=== PATIENT | female | born 1980 | race Caucasian/White ===

== ENCOUNTER 2016-12-15 11:41 | Inpatient (IN) | payer OTHER ==
[2016-12-15] MEDS ORDERED: ePHEDrine SULFATE IV PRN (14:37)
[2016-12-15] MEDS ORDERED: BRETHINE SUB-Q PRN (14:37)
[2016-12-15] MEDS ORDERED: POLYCILLIN/NS 2 GM/100 ML 2 GM/100 ML BAG IV ONE ×2 (14:37→14:49)
[2016-12-15] MEDS ORDERED: SUBLIMAZE IV PRN (14:37)
[2016-12-15] MEDS ORDERED: LACTATED RINGERS 1,000 ML ONE (14:49)
[2016-12-15] MEDS ORDERED: LACTATED RINGERS 1,000 ML IV SCH (14:50)
--- NOTE | 2016-12-15 14:51 | History and Physical Report ---
History of Present Illness Date of examination: 12/15/16 Date of admission: 12/15/16 11:45 Chief complaint: Contractions History of present illness: 36 year old presents to L&D triage with complaint of contractions. Patient denies leaking of fluid or vaginal bleeding. Patient reports active movement. Patient is seen at [facility] for care but we do not have any records for her. Will re-draw labs. 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 denies: congenital heart defect, mental retardation Social history: , lives with family, full code. denies: smoking, alcohol abuse, prescription drug abuse, IV drug use - Obstetrical History Expected Date of Delivery: 12/10/16 Actual Gestation: 40 Week(s) 5 Day(s) : 7 Para: 6 Hx # Term Pregnancies: 7 Number of Pregnancies: 0 Spontaneous Abortions: 0 Induced : 0 Number of Living Children: 6 Medications and Allergies Allergies Allergy/AdvReac Type Severity Reaction Status Date / Time No Known Allergies Allergy Unverified 12/15/16 11:43 Home Medications Medication Instructions Recorded Confirmed Last Taken Type Complete Caplet 1 tab PO DAILY 12/15/16 12/15/16 1 Day Ago History Active Meds: Active Medications Fentanyl (Sublimaze) 100 mcg IV Q2H PRN PRN Reason: Labor Pain Ampicillin Sodium (Polycillin/Ns 2 Gm/100 Ml) 2 gm in 100 mls @ 100 mls/hr IV ONCE ONE PRN Reason: Protocol Stop: 12/15/16 15:36 Lactated Ringer's (Lactated Ringers) 1,000 mls @ 125 mls/hr IV DIRECT ISIS Oxytocin/Sodium Chloride (Pitocin/Ns 20 Unit/1000ml Drip) 20 units in 1,000 mls @ 125 mls/hr IV DIRECT ISIS Ampicillin Sodium (Polycillin/Ns 1 Gm/50 Ml) 1 gm in 50 mls @ 100 mls/hr IV Q4H ISIS PRN Reason: Protocol Review of Systems All systems: negative (contractions) - Vital Signs Vital signs: Vital Signs Pulse Pulse Ox 93 H 95 12/15/16 12:11 12/15/16 12:11 Temp Pulse Resp BP Pulse Ox 93 H 120/78 98 12/15/16 13:37 12/15/16 12:18 12/15/16 13:37 - Physical Exam Breasts: Positive: deferred Cardiovascular: Regular rate, Normal S1, Normal S2 Lungs: Positive: Clear to auscultation Abdomen: Positive: normal appearance, soft. Negative: distention, tenderness, guarding, rigidity Genitourinary (Female): Positive: normal external genitalia. Negative: perineal /vulvar lesions (no genital lesions seen on careful exam with bright light) Uterus: Positive: enlarged. Negative: tender Extremities: Positive: normal. Negative: tenderness, edema - Obstetrical FHR: category 2 (2 variable FHR decelerations noted with rapid return to baseline; moderate variability, normal baseline rate, and accelerations of FHR noted) Uterine Contraction Monitor Mode: External Cervical Dilatation: 4 Cervical Effacement Percentage: 70 station: -2 Uterine Contraction Pattern: Irregular Uterine Contraction Intensity: Moderate Results All other labs normal. Assessment and Plan A: at 40 weeks, 5 days gestation. Labor. Unknown GBS. No records available. P: Admit. GBS prophylaxis. Re-draw labs. Anticipate .
[2016-12-15 15:38] LABS: Hematocrit 34.3 % (30.3-42.9); Hemoglobin 11.6 gm/dl (10.1-14.3); Mean Corpuscular HGB Conc 34 % (30-34); Mean Corpuscular Hemoglobin 31 pg (28-32); Mean Corpuscular Volume 93 fl (79-97); Platelet Count 249 K/mm3 (140-440); Red Blood Count 3.71 M/mm3 (3.65-5.03); White Blood Count 8.1 K/mm3 (4.5-11.0)
[2016-12-15 16:36] LABS: HIV-1 Antigen p24 Non React (Non React); HIVR-1/2 Ab Non React (Non React)
[2016-12-15] MEDS ORDERED: PITOCin/NS 20 UNIT/1000ML DRIP IV ONE (17:00)
--- NOTE | 2016-12-15 19:42 | Event Note ---
Date: 12/15/16 SVE /-.
[2016-12-15] MEDS: POLYCILLIN/NS 1 GM/50 ML 1 GM/50 ML BAG IV SCH (19:52)
[2016-12-15 20:42] LABS: Alanine Aminotransferase 8 units/L (7-56); Albumin 3.7 g/dL (3.9-5); Albumin/Globulin Ratio 1.5 %; Alkaline Phosphatase 103 units/L (35-129); BUN/Creatinine Ratio 40; Blood Urea Nitrogen 8 mg/dL (7-17); Calcium 8.7 mg/dL (8.4-10.2); Carbon Dioxide 20 mmol/L (22-30); Glucose 104 mg/dL (65-100); Total Protein 6.2 g/dL (6.3-8.2)
[2016-12-15 20:43] LABS: Anion Gap 20 mmol/L; Sodium 141 mmol/L (137-145)
--- NOTE | 2016-12-15 22:36 | Event Note ---
Date: 12/15/16 SVE 0.
[2016-12-16] MEDS ORDERED: PITOCin/NS 20 UNIT/1000ML DRIP IV ONE (00:10)
[2016-12-16] MEDS: PITOCin/NS 20 UNIT/1000ML DRIP 20 UNITS/1,000 ML BAG IV SCH ×2 (00:13→00:51)
[2016-12-16] MEDS: POLYCILLIN/NS 1 GM/50 ML 1 GM/50 ML BAG IV SCH (00:13)
[2016-12-16] MEDS ORDERED: NORCO 5/325 PO PRN (00:22)
--- NOTE | 2016-12-16 00:32 | Procedure Note ---
OB Delivery Note - Vaginal Delivery presentation: vertex Delivery position: OA Intrapartum events: meconium Delivery induction: none Delivery monitor: external FHT, external uterine Route of delivery: Delivery placenta: spontaneous Delivery cord: 3 umbilical vessels Episiotomy: none Delivery laceration: none Anesthesia: none Delivery comments: Spontaneous vaginal delivery of liveborn female weighing 8 lbs. 9 oz. over intact perineum with apgars of 8/9. Meconium stained amniotic fluid noted with spontaneous rupture of membranes after delivery of head. NICU called to birthing room. Baby bulb suctioned, 3 vessel cord double clamped and cut, and baby taken promptly to radiant warmer for suctioning. Spontaneous cry and respirations. Spontaneous delivery of intact placenta and membranes by gray mechanism. EBL 300 ml. Pitocin to IV fluids after delivery of placenta. Fundus firm and midline below umbilicus. No lacerations noted. Sponge count correct.
[2016-12-16] MEDS: MOTRIN PO SCH ×4 (00:57→23:35)
[2016-12-16] MEDS ORDERED: SODIUM CHLORIDE FLUSH SYRINGE 10 ML IV NR (01:00)
[2016-12-16 05:25] LABS: Bilirubin,Urine NEG (Negative); Blood,Urine LG (Negative); Ketones,Urine 20 mg/dL (Negative); Leukocyte Esterase,Urine NEG (Negative); Nitrite,Urine NEG (Negative); Urobilinogen,Urine < 2.0 mg/dL (<2.0)
[2016-12-16] MEDS: COLACE PO SCH (11:14)
[2016-12-16] MEDS ORDERED: Fluarix Quad 2017-2018(36 MOS+) IM ONE (12:00)
[2016-12-16 14:41] LABS: Hematocrit 31.1 % (30.3-42.9); Hemoglobin 10.8 gm/dl (10.1-14.3)
[2016-12-17] MEDS: MOTRIN PO SCH ×4 (05:50→23:41)
--- NOTE | 2016-12-17 09:03 | Progress Note ---
Assessment and Plan A: PPD #1 -stable P; Baby under bili lights, will plan discharge in am Subjective - Subjective Date of service: 12/17/16 Principal diagnosis: Patient reports: appetite normal [place]: doing well Objective - Vital Signs Latest vital signs: Vital Signs Temp Pulse Resp BP Pulse Ox 12/17/16 01:10 98.4 F 82 16 107/64 12/16/16 16:00 98.6 F 87 18 122/85 100 Intake and Output 12/16/16 12/17/16 12/17/16 22:59 06:59 14:59 Intake Total 600 300 Balance 600 300 Intake: Intake, Free Water 600 300 Other: # Voids Void 1 1 - Exam Breasts: Present: deferred Cardiovascular: Present: Regular rate Lungs: Present: Clear to auscultation Abdomen: Present: soft Vulva: both: normal Uterus: Present: fundal height below umbilicus Extremities: Present: normal Deep Tendon Reflex Grade: Normal +2
--- NOTE | 2016-12-17 09:06 | Discharge Summary ---
Providers - Providers Date of Admission: 12/15/16 11:45 Date of discharge: 12/18/16 Attending physician: ELIAN HARTLEY MD Primary care physician: ELIAN HARTLEY MD Hospitalization Reason for admission: active labor Delivery: Episiotomy: none Laceration: none Other procedures: none complications: none Discharge diagnosis: IUP at term delivered [place] baby: male Condition at discharge: Good Disposition: DC-01 TO HOME OR SELFCARE Plan - Provider Discharge Summary Activity: routine, no sex for 6 weeks, no heavy lifting 4 weeks, no strenuous exercise Diet: routine Instructions: routine Additional instructions: [] Smoking cessation referral if applicable(refer to patient education folder for contact #) [] Refer to [facility]'s [facility] Booklet Call your doctor immediately for: * Fever > 100.5 * Heavy vaginal bleeding ( >1 pad per hour) * Severe persistent headache * Shortness of breath * Reddened, hot, painful area to leg or breast * Drainage or odor from incision. * Keep incision clean and dry at all times and follow doctor's instructions regarding bathing/showering - Follow up plan Follow up: ELIAN HARTLEY MD [Primary Care Provider] - 6 Weeks Forms: [facility] Discharge Summary
[2016-12-17] MEDS: COLACE PO SCH ×2 (11:25→21:53)
[2016-12-18] MEDS: MOTRIN PO SCH (06:12)
[2016-12-18 11:12] VITALS: BP 135/66
== END 2016-12-18 12:30 | disposition home or self-care (01) | DRG 775 ==
LOC: TRG 11:41 → LD 11:45 → OB 12-16 02:03
PROVIDERS: ADMIT Obstetrics & Gynecology; ATTEND Obstetrics & Gynecology
PROC: 10E0XZZ Delivery of Products of Conception, External Approach (ICD-10-PCS; principal; 2016-12-15)
PROC: 3E0234Z Introduction of Serum, Toxoid and Vaccine into Muscle, Percutaneous Approach (ICD-10-PCS; 2016-12-15)
DX: O77.0 Labor and delivery complicated by meconium in amniotic fluid (principal); Z37.0 Single live birth; Z3A.40 40 weeks gestation of pregnancy; Z23 Encounter for immunization
CPT/HCPCS: 36415; 80053; 81003; 85014; 85018; 85027; 86592; 86706; 86762; 86850; 86900; 86901; 87806; 99211; G0463; J0290; J2590; J7120